=== PATIENT | male | born 1950 | race Hispanic/Latino ===

== ENCOUNTER 2017-08-30 12:55 | Emergency (ER) | payer MEDICARE ==
[~2017-08-30] VITALS: Ht 172.7 cm; Wt 91.0 kg
[~2017-08-30 12:55] MED LIST: ADVIL200 MG OR; ASPIRIN CHEWABL81 MG PO; BACTRIM1 TAB OR; CIPRO500 MG PO; CLOTRIMAZOLE1 % TOP; DICLOFENAC75 MG OR; DULOXETINE HCL60 MG PO; FLOMAX0.4 M1 PO; FLOMAX0.4 MG OR; GABAPENTIN300 MG PO; GLUCOPHAGE1000 MG OR; GLYBURIDE5 MG PO; IMITREX100 MG PO; JANUVIA100 MG OR; LEVEMIR1000 UNITS SC; LIPITOR40 MG PO; LORTAB 7.57.5 MG/TAB PO; LOSARTAN POT25 MG PO; METFORMIN1000 MG PO; METFORMIN500 M1 OR; METFORMIN500 MG PO; METOPROL TAR25 M1 PO; METOPROL TAR25 MG OR; METOPROL TAR25 MG PO; MICRONASE5 MG OR; NITROSTAT0.4 MG PO; PLAVIX75 MG PO; PRAVASTATIN10 MG PO; PRINIVIL5 MG OR; PYRIDIUM200 MG PO; TAMSULOSIN0.4 MG PO; ULTRAM50 MG OR; VOLTAREN OP; ZETIA10 MG PO; ZOCOR PO; ZOCOR80 MG OR; asa
[2017-08-30] MEDS ORDERED: CILOSTAZOL100 MG PO (13:35)
[2017-08-30] MEDS ORDERED: LYRICA75 MG PO (13:35)
[2017-08-30] MEDS ORDERED: JANUVIA100 MG PO (13:36)
[2017-08-30] MEDS ORDERED: METFORMIN500 MG PO (13:37)
[2017-08-30] MEDS ORDERED: TRESIBA FL100 UNIT/M SC (13:39)
[2017-08-30] MEDS ORDERED: LORTAB 1010 MG PO (13:40)
[2017-08-30 13:45] VITALS: BP 114/69
[2017-08-30] MEDS ORDERED: KEFLEX500 M1 PO (13:46)
== END 2017-08-30 13:45 | disposition home or self-care (01) ==
LOC: ED 12:55
DX: S61.432A Puncture wound without foreign body of left hand, initial encounter (principal); E11.9 Type 2 diabetes mellitus without complications; I10 Essential (primary) hypertension; E78.5 Hyperlipidemia, unspecified; I25.10 Atherosclerotic heart disease of native coronary artery without angina pectoris; W29.8XXA Contact with other powered hand tools and household machinery, initial encounter; Y93.89 Activity, other specified; Y92.009 Unspecified place in unspecified non-institutional (private) residence as the place of occurrence of the external cause

== ENCOUNTER → 2018-03-21 | Outpatient (REF) | payer MEDICARE ==
[~2018-03-21] MED LIST changes: +CILOSTAZOL100 MG PO; +JANUVIA100 MG PO; +KEFLEX500 M1 PO; +LORTAB 1010 MG PO; +LYRICA75 MG PO; +TRESIBA FL100 UNIT/M SC
[2018-03-21 14:22] LABS: GFR > 60 ML/MIN (>=60 (CALC)); GFR FOR AFR.AMER. > 60 ML/MIN (>=60 (CALC))
== END | disposition home or self-care (01) ==
LOC: CT 02-22 15:00
PROVIDERS: ATTEND Internal Medicine
DX: R07.9 Chest pain, unspecified (principal); J98.11 Atelectasis; I26.90 Septic pulmonary embolism without acute cor pulmonale
CPT/HCPCS: Q9967

== ENCOUNTER 2019-08-27 08:25 | Emergency (ER) | payer MEDICARE, MEDICAID ==
[~2019-08-27] VITALS: Ht 172.7 cm; Wt 96.3 kg
[2019-08-27] MEDS ORDERED: NAPROXEN500 MG PO ×2 (09:10)
[2019-08-27 09:17] VITALS: BP 173/83
[2019-11-20] MEDS ORDERED: JARDIANCE10 MG PO (14:24)
[2019-11-20] MEDS ORDERED: LOSARTAN POTASS25 MG PO (14:25)
[2019-11-20] MEDS ORDERED: ATORVASTATIN CA40 MG PO (14:25)
[2019-11-20] MEDS ORDERED: NOVOLOG MIX100 U/ML SC (14:26)
== END 2019-08-27 09:17 | disposition home or self-care (01) ==
LOC: ED 08:25
DX: S20.211A Contusion of right front wall of thorax, initial encounter (principal); E11.9 Type 2 diabetes mellitus without complications; I10 Essential (primary) hypertension; I25.10 Atherosclerotic heart disease of native coronary artery without angina pectoris; X50.0XXA Overexertion from strenuous movement or load, initial encounter; Y93.89 Activity, other specified; Y92.89 Other specified places as the place of occurrence of the external cause; Y99.0 Civilian activity done for income or pay; Z79.84 Long term (current) use of oral hypoglycemic drugs; Z95.0 Presence of cardiac pacemaker

== ENCOUNTER 2019-12-07 06:20 | Day surgery (SDC) | payer MEDICARE, MEDICAID ==
[~2019-12-07] VITALS: Ht 172.7 cm; Wt 90.7 kg
[~2019-12-07 06:20] MED LIST changes: +ATORVASTATIN CA40 MG PO; +FIASP FLEX100 UNIT/M SC; +JARDIANCE10 MG PO; +LOSARTAN POTASS25 MG PO; +NAPROXEN500 MG PO; +NOVOLOG MIX100 U/ML SC; +TRULICITY0.75 MG/0. SC
[2019-12-07] MEDS ORDERED: MOTRIN800 MG PO (06:36)
[2019-12-07] MEDS ORDERED: AMOXICILLIN500 M2 (06:36)
[2019-12-07 08:32] VITALS: BP 179/77
== END 2019-12-07 08:45 | disposition home or self-care (01) ==
LOC: ORM 06:20
PROVIDERS: ATTEND Urology
PROC: 0VTTXZZ Resection of Prepuce, External Approach (ICD-10-PCS; principal; 2019-12-07)
DX: N47.1 Phimosis (principal); L28.0 Lichen simplex chronicus; N48.1 Balanitis; N40.1 Benign prostatic hyperplasia with lower urinary tract symptoms; N13.8 Other obstructive and reflux uropathy; I11.0 Hypertensive heart disease with heart failure; I50.9 Heart failure, unspecified; E78.2 Mixed hyperlipidemia; I25.10 Atherosclerotic heart disease of native coronary artery without angina pectoris; E11.40 Type 2 diabetes mellitus with diabetic neuropathy, unspecified; Z79.4 Long term (current) use of insulin; Z95.0 Presence of cardiac pacemaker; Z20.828 Contact with and (suspected) exposure to other viral communicable diseases